=== PATIENT | female | born 2005 | race Caucasian/White ===

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

== ENCOUNTER 2023-02-19 12:21 | Emergency (ER) | payer BC, SELFPAY ==
[2023-02-19 12:22] VITALS: BP 113/67; PULSE 82; RESP 16; TEMP 36.3; O2SAT 99; BMI 23.9
--- NOTE | 2023-02-19 12:35 | EDS_ITS ---
HPI History of Present Illness Chief Complaint: Headache Detail of Chief Complaint: Left frontal headache Informant: patient Onset/Context/Timing Onset: Yesterday (Started approximately 26 hours ago) Context: Sudden Timing: Continuous Quality -Headache: Positive for Dull and Throbbing Location: Left frontal Current Severity: Moderate Maximum Severity: Severe Worsened by: Sound in light Relieved by: Nothing Associated Symptoms/Injury Associated Symptoms: Positive for Visual Changes (Bilateral) and Photophobia; Negative for Fever, Nausea, Vomiting, Sore Throat, Sinus Pressure, Numbness, Tingling, Preceding Aura or Visual Loss Injury - LOPEZ: Negative for Direct Trauma Narrative Narrative: Patient is a 17-year-old female with history of migraine headaches. She not had a headache and 3 years. She denies fever, chills night sweats. The headache is unilateral and predominantly left frontal area. She does have binocular blurred vision. She denies ringing or ears. She does endorse sonophobia and photophobia. She reports neck pain and stiffness. She denies respiratory cardiac symptoms. Denies GI symptoms. Denies rash. She denies paresthesia, anesthesia motors. She denies problems with balance or coordination. Prior similar symptoms: No Recent Illness/Hospitalization: No PFSH PFSH Medical History Charles-Sher syndrome Allergy/AdvReac Type Severity Reaction Status Date / Time Penicillanic Sulfone BL Allergy Other Verified 02/19/23 12:22 Beta-Lactam Penicillins [PCN] Allergy Other Verified 02/19/23 12:22 Sulfa (Sulfonamide Allergy NEEDS Verified 02/19/23 12:22 Antibiotics) FOLLOW-UP Social History current occupational status: student Smoking Status: Never smoker ROS ROS ED Constitutional Constitutional ED: Denies chills, fever(s), subjective or sweats Eyes Eyes: Reports blurry vision bilateral; Denies diplopia ENT ENT ED: Denies ear pain, rhinorrhea or sore throat Cardiovascular Cardiovascular: Denies chest pain, palpitations or racing heartbeat Respiratory/Chest Respiratory/Chest: Denies cough or dyspnea Gastrointestinal Gastrointestinal: Denies abdominal pain, nausea or vomiting Genitourinary Genitourinary ED: Denies dysuria, hematuria or urinary frequency Musculoskeletal Musculoskeletal: Reports neck pain; Denies arthralgias or myalgias Integumentary Denies rash Neurologic Neurologic: Reports headache(s); Denies paresthesias or weakness Psychiatric Psychiatric: Denies anxiety or depression Endocrine Endocrinology: Denies polydipsia or polyuria Hematologic/Lymphatic Hematologic/Lymphatic: Denies easy bleeding or easy bruising EXAM Physical Exam Const Vital Signs: 02/19/23 12:22 Temperature 97.3 F L Temperature Source Temporal Pulse Rate 82 Respiratory Rate 16 Blood Pressure 113/67 Blood Pressure Mean 82 Pulse Ox 99 Oxygen Delivery Method Room Air Positive well nourished and well developed General Appearance ED: well developed and NAD; Negative for cyanotic, diaphoretic or pallor HEENT Reports normocephalic, TM's clear and moist mucous membranes HEENT Narrative: Uvula is midline. There is no deviation with protrusion. Posterior pharynx is normal. Nares patent. atraumatic Tympanic Membrane ED: Yes TM's clear Eyes PERRL and EOMs intact bilaterally Eyes Narrative: There is no APD. There is no papilledema. Cup-to-disc ratio is normal. Venous pulsations noted bilaterally. General Eye ED: Negative for pale conjunctiva or scleral icterus Neck no lymphadenopathy, supple, no meningeal signs and no JVD Resp normal respiratory effort and clear to auscultation bilaterally Cardio regular rate, regular rhythm, S1 normal heart sound, S2 normal heart sound and no murmurs Extremity normal to inspection, full ROM and normal capillary refill Extremity Narrative: There is no clonus or Babinski sign. There is no dysmetria. Neuro oriented x3, CN's II-XII intact bilaterally and no sensory deficits noted Mcdermitt Coma Scale: document GCS findings Spontaneous Obeys Commands Oriented 15 Sensorium / Orientation: awake and alert Speech: speech normal Gait (Neuro): normal gait Motor Exam: strength 5/5 throughout Psych mental status grossly normal Skin General Skin Exam: elasticity normal and turgor normal; Negative for jaundice or pallor Lesions: no lesions Rashes: no rashes MDM MDM MDM Narrative Medical decision making narrative: Patient presents with unilateral headache and bilateral blurred vision. Patient's history and physical is consistent with ophthalmic migraine. Patient clinically does not have meningismal signs and is able to move her neck freely without grimacing or complaining of pain. With patient not being febrile no nuchal rigidity and no true photophobia and there is no concern for meningitis. Patient was treated with IV Toradol, Reglan and Benadryl. Suspect this is an ocular migraine. Treatment and Re-Evaluation Narrative: Patient was reassessed at 1322. Patient smiling. She states she feels markedly better. She was asked if she felt comfortable going home. She responded yes . Discharge Plan Triage Chief Complaint: Headache ED Provider: Shan Javed Dx/Rx/DC Orders Clinical Impression: Intractable ophthalmic migraine Instructions: ED, Migraine (Classical) Primary Care Provider: Care Physician,No Primary Referrals: Eriberto Whitmore MD [Non-Staff] - 1-2 Weeks Disposition Disposition: Home, Self Care
[2023-02-19] MEDS: Metoclopramide 10 MG/2 ML Vial IV (12:50)
[2023-02-19] MEDS: DiphenhydrAMINE 50 MG/ML Syringe 25 MG IV (12:50)
[2023-02-19] MEDS: Ketorolac 15 MG/ML Vial IV (12:50)
[2023-02-19] MEDS: 0.9% Normal Saline 1,000 ML 999 ML IV (12:50)
== END 2023-02-19 13:38 | disposition home or self-care (01) ==
PROVIDERS: Emergency Provider Emergency Medicine; Visit Provider Emergency Medicine
DX: G43.819 Other migraine, intractable, without status migrainosus (principal)
CPT/HCPCS: 99283; A4216

== ENCOUNTER 2023-05-12 22:56 | Emergency (ER) | payer BC, SELFPAY ==
[2023-05-12 22:57] VITALS: BP 127/102; PULSE 120; RESP 19; TEMP 36.1; O2SAT 99; BMI 23.6
--- NOTE | 2023-05-12 23:08 | EX.ED.DYSGE1 ---
HPI History of Present Illness Chief Complaint: Nausea/Vomiting Detail of Chief Complaint: Nausea Informant: patient Narrative Narrative: Patient presents to the emergency department complaint of nausea that start about 2 weeks ago. She states been low-grade. She has had no vomiting. Today she took a Zofran which did not help her. Patient began feeling shaky and heart racing up to the 150s so she decided come and get evaluated. She denies any significant abdominal pain. She does complain of some urinary frequency. She denies dysuria. Patient denies fever. Denies recent illness otherwise. She does not think she is and her last menstrual period was a week and a half ago. Patient has been under more stress as its finals time at school. She does take Prozac for anxiety and depression. [facility], [facility] Medical History Charles-Sher syndrome Home Medications fluoxetine 40 mg capsule (Prozac) 80 mg PO DAILY 05/12/23 [History Last Taken Unknown] Allergy/AdvReac Type Severity Reaction Status Date / Time Penicillanic Sulfone BL Allergy Other Verified 05/12/23 22:57 Beta-Lactam Penicillins [PCN] Allergy Other Verified 05/12/23 22:57 Sulfa (Sulfonamide Allergy NEEDS Verified 05/12/23 22:57 Antibiotics) FOLLOW-UP Social History current occupational status: student Smoking Status: Never smoker ROS ROS ED Constitutional Constitutional ED: Reports systems reviewed and no addt'l complaints, except as documented; Denies body ache(s), change in weight or chills Eyes Eyes: Denies acute decrease in peripheral vision, change in vision, double vision or loss of vision ENT ENT ED: Reports none; Denies ear pain, lip swelling, loss taste/smell, neck pain, otalgia or sore throat Cardiovascular Cardiovascular: Reports none; Denies abdominal pain, chest pain with activity, leg edema, lightheadedness, palpitations, rapid heart rate or syncope Respiratory/Chest Respiratory/Chest: Reports none; Denies change in mental status, dry cough, dyspnea, hemoptysis, shortness of breath at rest or shortness of breath with exertion Gastrointestinal Gastrointestinal: Reports none and other Details: Nausea ; Denies abdominal pain, change in stool character, diarrhea, hematemesis, hematochezia, melena, rectal bleeding or vomiting Genitourinary Genitourinary ED: Reports none; Denies abdominal discomfort, anuria, dysuria, genital pain or polyuria Musculoskeletal Musculoskeletal: Reports none; Denies arthralgias, back pain, difficulty walking, extremity pain, muscle weakness or myalgias Integumentary Reports none; Denies abscess or rash Neurologic Neurologic: Reports none; Denies abnormal gait, confusion, focal weakness, frequent falls, headache(s), loss of vision, numbness, paresthesias, radicular pain, vertigo or weakness Psychiatric Psychiatric: Reports systems reviewed and no addt'l complaints, except as documented and none; Denies behavioral changes, confusion, difficulty concentrating, hallucinations, suicidal ideation, tactile hallucinations or visual hallucinations Endocrine Endocrinology: Denies none, cold intolerance, excessive sweating, fatigue or heat intolerance Hematologic/Lymphatic Hematologic/Lymphatic: Reports none; Denies anemia, easy bleeding or easy bruising Allergic/Immunologic Allergic/Immunologic ED: Denies as per HPI, none, lip swelling, mouth swelling, throat swelling, tongue swelling or hives EXAM Physical Exam Const Vital Signs: 05/12/23 22:57 Temperature 97 F L Temperature Source Temporal Pulse Rate 120 H Respiratory Rate 19 H Blood Pressure 127/102 H Blood Pressure Mean 110 Pulse Ox 99 Positive well nourished and well developed General Appearance ED: well developed and NAD HEENT Reports TM's clear and moist mucous membranes normocephalic and atraumatic; Negative for trauma or tenderness Tympanic Membrane ED: Yes TM's clear Eyes PERRL and EOMs intact bilaterally General Eye ED: Negative for pale conjunctiva or scleral icterus Neck no lymphadenopathy, supple and no JVD General: Negative for tenderness Chest Wall inspection of chest normal and palpation of chest normal Chest: Negative for tenderness Resp normal respiratory effort and clear to auscultation bilaterally Effort and Inspection: Negative for respiratory distress or pain with movement Auscultation: Negative for rhonchi, wheezes or diminished lung sounds Cardio regular rate, regular rhythm, S1 normal heart sound, S2 normal heart sound and no murmurs Peripheral Pulses: pulses 2+ throughout GI normal to inspection, nondistended, normoactive bowel sounds, soft to palpation, non-tender, non-distended and no masses Back/Spine no CVA tenderness and no thoracic nor lumbar tenderness Extremity normal to inspection General Extremety ED: Negative for edema General Extremity: Negative for edema Neuro oriented x3, CN's II-XII intact bilaterally, no sensory deficits noted and gait normal Sensorium / Orientation: awake, alert, oriented to person, oriented to place and oriented to time Motor Exam: strength 5/5 throughout and strength abnormal Psych mental status grossly normal Skin no rashes or lesions noted and no wounds MDM MDM MDM Narrative Medical decision making narrative: Patient presents with nausea for several weeks. Increased stress with history of anxiety. IV line established. CBC with differential obtained showed a white count 12.1 with hemoglobin of 14 and platelet count of 385. Chemistries unremarkable. LFTs were normal. hCG was negative. Urinalysis was normal. Patient was medicated with Ativan and given a liter of the same fluid bolus. She was given Compazine 5 mg IV. She felt markedly improved after treatment. Patient will be discharged to home. Advised to follow-up with primary care physician within next 3 to 5 days. Lab Data Attestation: I reviewed the patient's lab results. Labs: Laboratory Results - last 24 hr 05/12/23 05/12/23 23:19 23:30 WBC 12.1 H RBC 4.83 Hgb 14.0 Hct 42.1 MCV 87.2 MCH 29.0 MCHC 33.3 RDW Std Deviation 38.2 RDW Coeff of Lizett 11.9 Plt Count 385 MPV 9.1 Immature Gran % (Auto) 0.200 Neut % (Auto) 60.1 Lymph % (Auto) 31.4 [place] % (Auto) 5.6 Eos % (Auto) 1.6 Baso % (Auto) 1.1 H Absolute Neuts (auto) 7.3 Absolute Lymphs (auto) 3.81 Nucleated RBC % 0 Sodium 137 Potassium 3.5 Chloride 106 Carbon Dioxide 22.0 Anion Gap 9 BUN 10 Creatinine 0.76 Estim Creat Clear Calc 107.14 Est GFR (MDRD) Af Amer 125 Est GFR (MDRD) Non-Af 103 BUN/Creatinine Ratio 13.1 Glucose 95 Calcium 9.3 Total Bilirubin 0.40 AST 11 L ALT 19 Alkaline Phosphatase 63 Total Protein 8.4 H Albumin 4.2 Globulin 4.2 Albumin/Globulin Ratio 1.0 Serum , Qual NEGATIVE Urine Color Yellow Urine Clarity Clear Urine pH 6.5 Ur Specific [place] 1.015 Urine Protein Negative Urine Glucose (UA) Normal Urine Ketones 15 H Urine Occult Blood Negative Urine Nitrite Negative Urine Bilirubin Negative Urine Urobilinogen Normal Ur Leukocyte Esterase Negative Discharge Plan Triage Chief Complaint: Nausea/Vomiting ED Provider: Luke Ayala Dx/Rx/DC Orders Clinical Impression: Anxiety, Nausea Instructions: ED Anxiety Reaction, ED Vomiting (Adult) Prescriptions: No Action fluoxetine [Prozac] 40 mg capsule 80 mg PO DAILY Primary Care Provider: Care Physician,No Primary Referrals: Care Physician,No Primary [Primary Care Provider] - Activity Restrictions/Additional Instructions: Follow-up with your primary care physician within next 3 to 5 days as needed. Disposition Disposition: Home, Self Care
[2023-05-12] MEDS: proCHLORPERazine 10 MG/2 ML Vial 5 MG IV (23:35)
[2023-05-12] MEDS: LORazepam 2 MG/ML Syringe 1 MG IV (23:36)
[2023-05-12 23:43] LABS: Mucous, Urine 0 SEEN /hpf (<or=2+); Red Blood Cells-Urine 0 SEEN /hpf (0-5); Squamous Epithelial Cells - UA 0 SEEN /hpf (5-10); White Blood Cells 0 SEEN /hpf (0-5)
[2023-05-12 23:47] LABS: Color, Urine Yellow (Yellow); Glucose, Dipstick Normal (Normal); Ketone-Dipstick 15 mg/dl (Negative); Leukocyte Esterase-Dipstick Negative /ul (Negative); Nitrite-Dipstick Negative (Negative); Occult Blood-Urine Negative /ul (Negative); Protein-Dipstick Negative (Negative); Specific Gravity, Urine 1.015 (1.002-1.030); Urine Bilirubin Dipstick Negative (Negative); Urine Clarity Clear (Clear); Urine Urobilinogen Normal (Normal); Urine pH 6.5 (5.0 - 8.0)
[2023-05-12 23:48] LABS: Absolute Lymphocyte Count 3.81 X10^3/uL (0.83-4.51); Absolute Neutrophil Count 7.3 X10^3/uL (2.0-7.7); Basophil# 0.13 X10^3/uL; Basophil% 1.1 % (0-1); Eosinophils% 1.6 % (0-5); Hematocrit 42.1 % (37-47); Lymphocyte # 3.81 X10^3/ul (0.83-4.51); Lymphocyte % 31.4 % (19-41); Mean Corp Hgb Conc 33.3 g/dL (32-36); Mean Corpuscular Volume 87.2 fL (81-99); Mean Platelet Vol. 9.1 fl (6.2-12.0); Monocyte# 0.68 X10^3/uL; Monocyte% 5.6 % (0-10); NRBC Flagged by Analyzer 0 % (0-5); Neutrophil % 60.1 % (47-70); Platelet Count 385 K/mm3 (150-450); RBC Distribution Width CV 11.9 % (11.6-14.6); RBC Distribution Width SD 38.2 fl (35.1-43.9); Red Blood Count 4.83 M/mm3 (4.2-5.4); White Blood Count 12.1 K/mm3 (4.4-11.0)
[2023-05-12 23:56] LABS: Internal QC Validated? YES +Cl - CLEAR BKGD; Pregnancy, Serum, hCG Quali. NEGATIVE Negative
[2023-05-13 00:03] LABS: AST(SGOT) 11 U/L (15-37); Alanine Aminotransfer ALT/SGPT 19 U/L (13-56); Albumin, Serum 4.2 g/dL (3.2-5.0); Alkaline Phosphatase 63 U/L (45-117); Anion Gap 9 (5-15); BUN 10 mg/dL (7-18); BUN/Creat Ratio 13.1 RATIO (10-20); Calcium,Total 9.3 mg/dL (8.5-10.1); Chloride 106 mmol/L (98-107); Creatinine, Serum 0.76 mg/dL (0.55-1.02); EST Glomerular Filtration Rate 103 mL/min (>60); Est Glom Filt Rate - Afr Amer 125 mL/min (>60); Estimated Creatinine Clearance 107.14 ml/min; Globulin 4.2 g/dL (2.2-4.2); Glucose 95 mg/dL (74-106); Potassium 3.5 mmol/L (3.5-5.1); Protein, Total 8.4 g/dL (6.4-8.2); Sodium Level 137 mmol/L (136-145)
[2023-05-13 00:20] LABS: Bacteria 1+ /hpf (None Seen)
== END 2023-05-13 00:28 | disposition home or self-care (01) ==
PROVIDERS: Emergency Provider Emergency Medicine; Visit Provider Emergency Medicine
DX: R11.2 Nausea with vomiting, unspecified (principal); F41.9 Anxiety disorder, unspecified; R35.0 Frequency of micturition; F32.A Depression, unspecified; Z79.899 Other long term (current) drug therapy
CPT/HCPCS: 80053; 81001; 84703; 85025; 96374; 96375; 99283; J7030; A4216

== ENCOUNTER 2024-05-10 18:59 | Emergency (ER) | payer BC, SELFPAY ==
[2024-05-10 19:00] VITALS: BP 138/79; PULSE 119; RESP 16; TEMP 35.9; O2SAT 100; BMI 23.8
--- NOTE | 2024-05-10 20:17 | EX.ED.DYSGE1 ---
HPI History of Present Illness Chief Complaint: Lower Extremity Injury Narrative Narrative: Patient is a 18-year-old female with no known significant past medical history who presented to the emergency department chief complaint of the right calf pain. Patient states that about 30 minutes prior to arrival she developed pain in her right calf and states that she is concerned that she had a blood clot. States that she is on control. States that she has never had blood clot in the past. 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 Patient has no other complaints at this point time. Patient denies any trauma or travel history. [facility] Medical History Charles-Sher syndrome Home Medications ?Medication ?Instructions ?Recorded ?Last Taken ?Type fluoxetine 40 mg capsule (Prozac) 80 mg PO DAILY 05/12/23 Unknown History Allergy/AdvReac Type Severity Reaction Status Date / Time Penicillanic Sulfone BL Allergy Other Verified 05/10/24 19:00 Beta-Lactam Penicillins (PCN) Allergy Other Verified 05/10/24 19:00 Sulfa (Sulfonamide Allergy NEEDS Verified 05/10/24 19:00 Antibiotics) FOLLOW-UP Social History current occupational status: student Smoking Status: Never smoker ROS ROS ED ROS Narrative Constitutional: Denies any fevers, chills, headaches, lightness, dizziness Cardiovascular: Denies chest pain or palpitations Respiratory: Denies shortness of breath Abdomen: Denies abdominal pain nausea vomit diarrhea : Denies any urinary symptoms Neurological: Denies any numbness or weakness Musculoskeletal: Denies back pain Skin: Denies rashes or lesions EXAM Physical Exam Narrative Exam Narrative: General: Patient lying in bed rest comfortably did not appear to be acute distress Head: Atraumatic, normocephalic Eyes: PERRL bilateral, EOMI bilateral no conjunctival injection noted Neck: Soft, supple, trach midline Cardiovascular: Regular rate and rhythm no murmurs gallops rubs noted Respiratory: Clear to auscultation bilaterally no rales rhonchi or wheeze noted Musculoskeletal: Right lower extremity compartment soft and compressible. No evidence of trauma. Bilateral lower extremities appear symmetric. Extremities: DP pulses +2/4 in the bilateral lower extremities, +5/5 strength noted in the bilateral upper and lower extremities, no pedal edema on exam Neurological: Patient following commands knew that she was at [facility] the year is 2023. Sensation grossly intact in the bilateral lower extremities Skin: Warm, dry, intact Const Vital Signs: 05/10/24 19:00 Temperature 96.7 F L Temperature Source Temporal Pulse Rate 119 H Respiratory Rate 16 Blood Pressure 138/79 H Blood Pressure Mean 98 Pulse Ox 100 Oxygen Delivery Method Room Air MDM MDM MDM Narrative Medical decision making narrative: Patient is a 18-year-old female who presents to the emergency department with a chief complaint of concern of blood clot in her right calf secondary to being on control and studying a lot. I did do a 3 point ultrasound at bedside and did not show any evidence of clot burden. I discussed that the patient will need to return tomorrow for a ultrasound of her right lower extremity as we do not have [facility]. I did discuss with her mother as well on the phone about this doing a dose of Lovenox here in the emergency department however at this point time given that her pain was sudden onset and was about 30 minutes prior to arrival here do have low suspicion for blood clots. They would like to hold off on the Lovenox as we discussed the risks and benefits of this medication. They are agreeable with this plan all question concerns answered she would like to go home and this point time she was discharged home in stable condition. She was advised to return with worsening symptoms or other concerns. She is also advised follow-up with primary care physician. Discharge Plan Triage Chief Complaint: Lower Extremity Injury ED Provider: Wally Barlow Dx/Rx/DC Orders Clinical Impression: Leg pain, right Prescriptions: No Action fluoxetine [Prozac] 40 mg capsule 80 mg PO DAILY Other Ambulatory Orders: Venous Duplex US, Unilateral (Stat) Facility: [facility] - Location: [facility] Ordered By: Dr. Wally Barlow Primary Care Provider: Care Physician,No Primary Referrals: Care Physician,No Primary [Primary Care Provider] - [facility] - Activity Restrictions/Additional Instructions: Return here tomorrow for your ultrasound of your leg. Return with worsening symptoms or other concerns. You referred to a family physician as well. Use ibuprofen Tylenol for pain control. Print Language: Luxembourger Disposition Disposition: Home, Self Care
== END 2024-05-10 20:37 | disposition home or self-care (01) ==
PROVIDERS: Emergency Provider Emergency Medicine; Visit Provider Emergency Medicine
DX: M79.604 Pain in right leg (principal); L51.1 Stevens-Johnson syndrome
CPT/HCPCS: 99282

== ENCOUNTER → 2024-05-11 | Outpatient (CLI) | payer BC, SELFPAY ==
--- NOTE | 2024-05-11 10:53 | VDLE_ITS ---
Reason For Study: Right leg pain RIGHT LEFT GSV is normal. CFV is compressible, spontaneous, phasic, CFV is compressible, spontaneous, phasic, competent, and demonstrates normal competent and demonstrates normal augmentation. augmentation. FV is compressible, spontaneous, phasic, competent and demonstrates normal augmentation. POP V is compressible, spontaneous, phasic, competent and demonstrates normal augmentation. T/P Trunk is compressible. PTV is compressible. RT PerV is compressible. Procedure This is a venous duplex using B-mode, color flow and spectral Doppler. Exam performed in department. No in town PCP, [employer] student, seen as next day ED exam, no preliminary given. VL/Venous Duplex US, Unilateral Interpretation Summary Deep veins of the right lower extremity are patent and compressible segmentally . There is no evidence of right lower extremity deep vein thrombosis. The right great sapheno us vein appears patent and compressible segmentally. Ordering Physician: Wally Barlow Performed By: Alexandra Boggs RVT
== END | disposition home or self-care (01) ==
LOC: CVS 10:53
PROVIDERS: Referring Provider Emergency Medicine; Visit Provider Emergency Medicine
DX: M79.661 Pain in right lower leg (principal)
CPT/HCPCS: 93971

== ENCOUNTER 2024-07-24 12:51 | Emergency (ER) | payer BC, SELFPAY ==
[2024-07-24 12:53] VITALS: BP 117/86; PULSE 111; RESP 18; TEMP 36.3; O2SAT 97; BMI 24.1
--- NOTE | 2024-07-24 15:51 | EDS_ITS ---
HPI History of Present Illness HPI Narrative: Patient presents with dog bite to her hands that occurred today. Patient states she was told that the dog was immunized. Patient states that the dog's owner/operator was unable to bring his paperwork which proved that. Patient went to the wellness center at [facility] and was referred to the emergency department. Patient is unsure of her last tetanus. Patient denies any paresthesias or weakness. 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 Cem Marquez DO) Hx of wisdom tooth extraction Social History current occupational status: student Smoking Status: Never smoker ROS ROS ED Constitutional Constitutional ED: Denies chills or fever(s) Eyes Eyes: Denies blurry vision or change in vision ENT ENT ED: Denies rhinorrhea or sore throat Cardiovascular Cardiovascular: Denies chest pain or palpitations Respiratory/Chest Respiratory/Chest: Denies cough or dyspnea Gastrointestinal Gastrointestinal: Denies nausea or vomiting Genitourinary Genitourinary ED: Denies dysuria or hematuria Musculoskeletal Musculoskeletal: Denies back pain or neck pain Integumentary Denies abscess or rash Neurologic Neurologic: Denies headache(s) or weakness Allergic/Immunologic Allergic/Immunologic ED: Denies mouth swelling or urticaria EXAM Physical Exam Const Vital Signs: 07/24/24 12:53 Temperature 97.3 F L Temperature Source Temporal Pulse Rate 111 H Respiratory Rate 18 Blood Pressure 117/86 H Blood Pressure Mean 96 Pulse Ox 97 Oxygen Delivery Method Room Air Positive well nourished and well developed General Appearance ED: well developed and NAD HEENT Reports moist mucous membranes Neck full ROM and supple Extremity Extremity Narrative: There is a small puncture wound on the palmar aspect of the right hand at the base of the first metacarpal. There is no active bleeding noted. There are superficial abrasions on the dorsal aspect of the left wrist and proximal hand. There is no bleeding. There is no gapping of the wound margins. There are no foreign bodies. Sensation is intact to light touch in the radial, median, and ulnar areas bilaterally. Strength is 5/5 in the radial, median, and ulnar areas bilaterally. Radial pulses are equal bilaterally. Capillary refill is less than 2 seconds in all digits. Neuro oriented x3, CN's II-XII intact bilaterally, moves all extremities, no focal motor deficits and no sensory deficits noted Sensorium / Orientation: alert Motor Exam: strength 5/5 throughout MDM MDM MDM Narrative Medical decision making narrative: The patient was advised that she does not need rabies immunizations. Patient was given a tetanus booster. Patient was given bacitracin dressing. Patient was instructed to follow-up with her primary care physician in 7 to 10 days. Patient was instructed to return if worse in any way. Patient understood and was agreeable with plan. All questions were answered. Discharge Plan Triage Chief Complaint: Bite ED Provider: Cem Marquez Dx/Rx/DC Orders Clinical Impression: Dog bite of left hand, Dog bite of right hand Instructions: ED Dog Bite Prescriptions: No Action fluoxetine [Prozac] 40 mg capsule 80 mg PO DAILY Primary Care Provider: Care Physician,No Primary Referrals: Care Physician,No Primary [Primary Care Provider] - Print Language: Telugu Disposition Disposition: Home, Self Care
[2024-07-24] MEDS: Diphth,Pertuss(Acell),Tet Vac 0.5 ML Vial IM (16:30)
== END 2024-07-24 16:31 | disposition home or self-care (01) ==
PROVIDERS: Emergency Provider Emergency Medicine; Visit Provider Emergency Medicine
DX: S61.451A Open bite of right hand, initial encounter (principal); S61.452A Open bite of left hand, initial encounter; W54.0XXA Bitten by dog, initial encounter; Z23 Encounter for immunization
CPT/HCPCS: 90715; 99283